=== PATIENT | male | born 1975 | race Caucasian/White ===

== ENCOUNTER 2019-06-16 19:49 | Emergency (ER) | payer OTHER ==
[~2019-06-16] VITALS: Ht 170.2 cm; Wt 72.6 kg
[2019-06-16 19:52] VITALS: BP 160/89; Ht 170.2 cm; Wt 72.6 kg
== END 2019-06-16 21:10 | disposition home or self-care (01) ==
LOC: ED 19:49
DX: S39.012A Strain of muscle, fascia and tendon of lower back, initial encounter (principal); Z91.010 Allergy to peanuts; X58.XXXA Exposure to other specified factors, initial encounter; Y93.89 Activity, other specified; Y92.89 Other specified places as the place of occurrence of the external cause; Y99.8 Other external cause status
CPT/HCPCS: J1885

== ENCOUNTER 2020-01-08 05:57 | Emergency (ER) | payer OTHER ==
[~2020-01-08] VITALS: Ht 170.2 cm; Wt 86.2 kg
[2020-01-08 06:04] VITALS: Ht 170.2 cm; Wt 86.2 kg
[2020-01-08 08:09] VITALS: BP 137/94
== END 2020-01-08 08:09 | disposition home or self-care (01) ==
LOC: ED 05:57
DX: S43.401A Unspecified sprain of right shoulder joint, initial encounter (principal); J45.909 Unspecified asthma, uncomplicated; Z91.010 Allergy to peanuts; X58.XXXA Exposure to other specified factors, initial encounter; Y93.B2 Activity, push-ups, pull-ups, sit-ups; Y92.39 Other specified sports and athletic area as the place of occurrence of the external cause; Y99.8 Other external cause status
CPT/HCPCS: J1885; Q0092

== ENCOUNTER 2020-11-10 19:30 | Emergency (ER) | payer SELFPAY ==
[~2020-11-10] VITALS: Ht 170.2 cm; Wt 91.6 kg
[2020-11-10 19:39] VITALS: Ht 170.2 cm; Wt 91.6 kg
[2020-11-10 22:08] VITALS: BP 145/101
== END 2020-11-10 22:08 | disposition home or self-care (01) ==
LOC: ED 19:30
DX: T22.112A Burn of first degree of left forearm, initial encounter (principal); T23.071A Burn of unspecified degree of right wrist, initial encounter; T24.032A Burn of unspecified degree of left lower leg, initial encounter; T31.0 Burns involving less than 10% of body surface; J45.909 Unspecified asthma, uncomplicated; V28.0XXA Motorcycle driver injured in noncollision transport accident in nontraffic accident, initial encounter; Y93.I9 Activity, other involving external motion; Y92.488 Other paved roadways as the place of occurrence of the external cause; Y99.8 Other external cause status
CPT/HCPCS: 90715; J1885